=== PATIENT | male | born 1955 | race Caucasian/White ===

== ENCOUNTER → 2018-01-04 | Outpatient (CLI) | payer BC ==
--- NOTE | 2018-01-04 12:14 | PCVCIMAG ---
APPROVED REPORT Study performed: 01/04/2018 11:01:34 Exam: Stress Echocardiogram Indication: Palpitations Patient Location: Echo lab Stress Nurse: Paula Srivastava RN Status: routine Ht: 5 ft 4 in HR: 70 bpm BP: 100/80 mmHg Rhythm: NSR Medical History Medical History: Hyperlipidemia Procedure The patient underwent an Exercise Stress Test using the Derick Protocol. Blood pressure, heart rate, and EKG were monitored. An Echocardiogram was performed by soil technician in four stages in quad fashion. At peak stress, four selected images were obtained and placed side by side with resting images for comparison. Stress Test Details Stress Test: Exercise stress testing was performed using a Derick protocol. HR Resting HR: 70 bpmMax Heart Rate (APMHR): 157 bpm Max HR Achieved: 150 bpmTarget HR (85% APMHR): 133 bpm % of APMHR: 95 HR response to stress: Normal HR response to stress BP Resting BP: 100/80 mmHg Max BP: 146/80 mmHg ECG Resting ECG: Sinus Rhythm, PVC's Stress ECG: Sinus Rhythm ST Change: Non-ischemic Recovery ECG: Sinus Rhythm Clinical Reason for Termination: Maximal effort Exercise duration: 10 min 00 sec Highest Stage Achieved: Stage 4: 4.2 mph at 16% grade. Exercise capacity: 13.30 METs Overall Exercise Capacity for Age: Normal Pre-Stress Echo The resting Echocardiogram showed normal left ventricular contractility with an estimated Ejection Fraction of about 55-60%. Normal wall motion in all segments on baseline images. Post-Stress Echo The stress Echocardiogram showed normal left ventricular contractility with an estimated Ejection Fraction of about 60-65%. Normal augmentation of wall motion in all segments on post stress images. Clinical No clinical or ECG evidence for ischemia. Conclusion Clinical Response: Non-ischemic Exercise Capacity: Superior Stress ECG Response: Non-ischemic Stress Echo Images: Non-ischemic The left ventricle is normal in size and wall thickness in both the rest and stress images. Other Information Study Quality: Good <Conclusion> The left ventricle is normal in size and wall thickness in both the rest and stress images.
== END | disposition home or self-care (01) ==
LOC: PCVCIMAG 15:52
PROVIDERS: ATTEND Internal Medicine Cardiovascular Disease
DX: I10 Essential (primary) hypertension (principal); R00.2 Palpitations
CPT/HCPCS: 93325; 93351